=== PATIENT | female | born 1965 | race Caucasian/White ===

== ENCOUNTER 2018-05-27 11:11 | Inpatient (IN) | payer OTHER ==
[~2018-05-27] VITALS: Ht 162.6 cm; Wt 108.4 kg
--- NOTE | ~2018-05-27 | 2DMMODE ---
[facility] [address] [place] [address] 2 D/M-MODE ECHOCARDIOGRAM Name: KHALIDA MOCK Room #: 419-P [facility] IN M.R.#: [id number] Admission: 05/27/18 Attend Phys: Sacha Palacio MD Discharge: Date of : 65 Date of Service: 05/28/18 0855 Report #: [id number] THIS REPORT FOR: //name// APPROVED REPORT Study performed: 05/28/2018 08:00:25 EXAM: Comprehensive 2D, Doppler, and color-flow Echocardiogram Patient Location: Echo lab Room #: [facility] Status: routine BSA: 2.20 HR: 106 bpm BP: 123/75 mmHg Rhythm: Tachycardia Other Information Study Quality: Adequate Indications Edema, dyspnea. 2D Dimensions RVDd: 32.48 mm IVSd: 11.85 (7-11mm) LVOT Diam: 20.40 (18-24mm) LVDd: 51.23 mm PWd: 11.50 (7-11mm) Ascending Ao: 38.80 (22-36mm) LVDs: 35.81 (25-40mm) Aortic Root: 36.20 mm Volumes Left Atrial Volume (Systole) Single Plane 4CH: 47.00 mL Single Plane 2CH: 43.38 mL LA ESV Index: 22.00 mL/m2 Aortic Valve AoV Peak Elfego.: 2.07 m/s AO Peak Gr.: 17.07 mmHg LVOT Max P.74 mmHg LVOT Max V: 1.64 m/s HERMAN Vmax: 2.59 cm2 Mitral Valve E/A Ratio: 1.1 MV Decel. Time: 147.74 ms MV E Max Elfego.: 1.49 m/s [facility] [address] [address] 2 D/M-MODE ECHOCARDIOGRAM Name: KHALIDA MOCK Room #: 419-[facility] IN [facility].#: [id number] Admission: 05/27/18 Attend Phys: Sacha Palacio MD Discharge: Date of : 65 Date of Service: 05/28/18 0855 Report #: [id number] MV A Elfego.: 1.37 m/s MV PHT: 42.84 ms IVRT: 43.83 ms Pulmonary Valve PV Peak Elfgeo.: 1.42 m/s PV Peak Gr.: 8.10 mmHg Pulmonary Vein P Vein S: 0.50 m/s P Vein D: 0.81 m/s P Vein S/D Ratio: 0.62 Tricuspid Valve TR Peak Elfego.: 2.70 m/s RAP Estimate: 10.00 mmHg TR Peak Gr.: 29.21 mmHg PA Pressure: 39.00 mmHg Left Ventricle The left ventricle is normal size. There is normal LV segmental wall motion. Borderline concentric left ventricular hypertrophy. Left ventricular systolic function is normal. LVEF is 55%. Difficult to accurately assess LV diastolic function due to tachycardia. Right Ventricle The right ventricle is normal size. The right ventricular systolic function is normal. Atria The left atrium size is normal. The right atrium size is normal. Aortic Valve The aortic valve is normal in structure, trileaflet. No aortic regurgitation. There is no aortic valvular stenosis. Mitral Valve The mitral valve is normal in structure. Mild mitral regurgitation. Tricuspid Valve The tricuspid valve is normal in structure. Mild to moderate tricuspid regurgitation. Estimated PAP is 35-40mmHg. Pulmonic Valve The pulmonary valve is normal in structure. Trace pulmonic regurgitation. [facility] [address] [place] [address] 2 D/M-MODE ECHOCARDIOGRAM Name: KHALIDA MOCK Room #: 419-P ADM IN .R.#: [id number] Admission: 05/27/18 Attend Phys: Sacha Palacio MD Discharge: Date of : 65 Date of Service: 05/28/18 0855 Report #: [id number] Great Vessels Aortic root is borderline dilated. The ascending aorta is mildly dilated at 3.9cm. IVC is dilated and collapses >50% with inspiration. Pericardium There is no pericardial effusion. <Conclusion> Left ventricular systolic function is normal. There is normal LV segmental wall motion. LVEF 55%. The aortic valve is normal in structure, trileaflet. No aortic regurgitation or stenosis. The mitral valve is normal in structure. Mild mitral regurgitation. Mild to moderate tricuspid regurgitation. Estimated pulmonary artery pressure of 35-40mmHg. The ascending aorta is mildly dilated/uppper limits of normal at 3.9cm. There is no pericardial effusion. <ELECTRONICALLY SIGNED> By: Agustin Alvarez MD, [facility] 05/28/18854 4 4 Agustin Alvarez MD, [facility] /INF
--- NOTE | ~2018-05-27 | D ---
[facility] [place] [address] DISCHARGE SUMMARY Name: KHALIDA MOCK Room #: 419-P [facility] IN M.R.#: [id number] Admission: 05/27/18 Attend Phys: Sacha Palacio MD Discharge: 06/01/18 Date of : 65 Report #: [id number] THIS REPORT FOR: //name// CC: Agustin Alvarez MD [facility] ____ ____ DATE OF SERVICE: 06/01/2018 HOSPITAL COURSE: The patient is a 52-year-old female who was admitted with shortness of breath and anasarca. She has an extensive history of asthma as well. Admission chest x-ray revealed left-sided infiltrate consistent with pneumonia and she was placed on levofloxacin intravenously and aggressive pulmonary toilet. Nocturnal oximetry revealed significant desaturations during the night despite reasonably good oxygenation when she was awake and up during the day. She was started on nocturnal oxygen at 2 liters per nasal cannula per minute and a formal polysomnogram is recommended. During her hospital stay, she was seen by Dr. Agustin Alvarez from Cardiology who diagnosed and helped manage her diastolic congestive heart failure, Dr. Raulito Mullen from Pulmonary Medicine who helped manage her pneumonia and asthma and probable obstructive sleep apnea symptoms, and she was seen by Dr. Allyn Pulido from Psychiatry who recommended careful followup of her medications being used to treat the underlying paranoid schizophrenia. One inciting factor was the large dose of verapamil the patient was taking prior to admission in order to treat high blood pressure and tachycardia. Beta blockers are not an option in this asthmatic patient. Part of the tachycardia problem is likely the pulmonary infection and treating the underlying cause may help reduce her heart rate towards a more normal level. Verapamil was reduced from 480 mg per day down to 240 mg per day and well tolerated. Diuretics were added, with initial intravenous twice a day doses of Lasix and subsequently converted to torsemide orally, along with supplemental potassium and magnesium. Also noteworthy, the patient's glomerular filtration rate hovered between 35 and 40 throughout her hospital stay, suggestive of at least stage 2 chronic kidney disease. At the time of discharge, the patient is being sent home on the following medications regimen: Levofloxacin 500 mg by mouth daily x 5 more days, magnesium oxide 400 mg by mouth daily, potassium chloride 40 plus 20 mEq by mouth daily*, torsemide 40 mg by mouth every morning, ferrous sulfate 325 mg by [address] [address] DISCHARGE SUMMARY Name: KHALIDA MOCK Room #: 419-P [facility] IN ..#: [id number] Admission: 05/27/18 Attend Phys: Sacha Palacio MD Discharge: 06/01/18 Date of : 65 Report #: [id number] mouth twice daily with meals x 6 months, Breo Ellipta 2 puffs daily for treatment of asthma, albuterol/ipratropium nebulizer treatments q.i.d. and p.r.n., aripiprazole 45 mg by mouth daily, bupropion hydrochloride XL 300 mg by mouth daily at dinnertime, levothyroxine 25 mcg by mouth daily, Seroquel 200 mg by mouth nightly, lisinopril 5 mg by mouth daily, verapamil extended release 240 mg by mouth daily, vitamin D 5000 units by mouth daily, duloxetine 60 mg by mouth daily, MiraLax 17 grams in a glass of water by mouth daily, atorvastatin 10 mg by mouth nightly, clozapine 400 mg by mouth nightly, montelukast 10 mg by mouth daily, omeprazole 40 mg by mouth daily, acetaminophen 650 mg by mouth every 4 hours as needed for pain or temperature greater than 100 degrees, calcium carbonate or Tums 2 tablets by mouth 4 times daily as needed for dyspepsia, dextran eye drops 1 or 2 drops each eye 3 times daily as needed or ocular dryness, no other medications. During this hospitalization, the patient was found to have an elevated thyroid stimulating hormone and was placed on a low-dose levothyroxine 25 mcg daily. This will need test in a couple of months. Also during this hospitalization, the patient was found to be significantly ____ and subsequently converted to oral regimen once again. Her last hemoglobin during this time went up from 8.4-9.5. The patient's weight during this hospital stay was as high as 263.8 pounds, but on 05/31/2018, with aggressive diuretic therapy, her weight had decreased to 238.9 pounds. She will need to weight herself daily. In the event of being 2-pound or more increase in her baseline, she will need additional diuretic therapy. We will follow serial chemistries and medication levels to ensure ____. Apparently, she will need a followup chest x-ray ____. DISCHARGE DIAGNOSES: 1. ____. 2. Diastolic congestive heart failure. 3. ____. 4. Paranoid schizophrenia. 5. Hypertension. 6. Suspected obstructive sleep apnea. 7. Morbid obesity. 8. Gastroesophageal reflux disease. 9. Hypothyroidism. 10. Chronic kidney disease, stage 2 ____. 11. Hyperlipidemia. 12. History of sciatica ____. [facility] [address] [place] [address] DISCHARGE SUMMARY Name: KHALIDA MOCK Room #: 419-P [facility] IN ..#: [id number] Admission: 05/27/18 Attend Phys: Sacha Palacio MD Discharge: 06/01/18 Date of : 65 Report #: [id number] We will see the patient in followup first day of the week of her discharge from the hospital at her residential care facility, ____ in [facility]. <ELECTRONICALLY SIGNED> By: Sacha Palacio MD 06/12/18 1042 [id number] Sacha Palacio MD /nt
--- NOTE | ~2018-05-27 | HC ---
[facility] [place] [address] CONSULTATION Name: KHALIDA MOCK Room #: 419-P [facility] IN .R.#: [id number] Admission: 05/27/18 Attend Phys: Sacha Palacio MD Discharge: 06/01/18 Date of : 65 Report #: [id number] THIS REPORT FOR: //name// CC: Sacha Palacio REASON FOR CONSULTATION: Edema and tachycardia. HISTORY OF PRESENT ILLNESS: The patient is a 52-year-old woman who is a resident at [facility] for paranoid schizophrenia. Her history includes asthma, hypertension and anemia. She was admitted with increasing shortness of breath and lower extremity edema. She has had about a 20 pound weight gain with lower extremity edema, abdominal bloating; no orthopnea or paroxysmal nocturnal dyspnea. She also had a nonproductive cough and worsening of her wheezing and bronchospasm. Since admission, she has noticed to have an underlying sinus tachycardia. I have been kindly asked to see her in this regard. She denies past cardiac history. She denies a history of myocardial infarction, coronary disease or prior cardiac testing. No history of near syncope or syncope. Since admission, she has been diagnosed with pneumonia and a pulmonary consultation has been requested for treatment of her bronchospasm. ALLERGIES: There are no known drug allergies. MEDICATIONS: Her medicines include albuterol nebulizer, iron, atorvastatin, verapamil 240 mg twice daily, duloxetine 60 mg daily, Abilify 30 mg daily, ____, bupropion 150 mg twice daily, Seroquel 400 mg daily, Breo Ellipta 1 puff daily, Tums, MiraLax, Depo-Provera and omeprazole. PAST MEDICAL HISTORY: Her past history and medical records have been reviewed and include a history of paranoid schizophrenia, monoclonal gammopathy, history of anemia, asthma, hypertension, chronic kidney disease, reflux disease, Tiffnaie fundoplication and prior cholecystectomy. SOCIAL HISTORY: She has been disabled due to mental health issues. Nonsmoker, nondrinker, has a supportive family. FAMILY HISTORY: Unremarkable for premature coronary disease. REVIEW OF SYSTEMS: All systems negative except as that noted above. PHYSICAL EXAMINATION: GENERAL: A pleasant woman who is alert and talking in full sentences. She has audible wheezing. VITAL SIGNS: Blood pressure is 125/70, heart rate of 90 and regular. She is afebrile, 5 feet 4 inches tall, 263 pounds. She reports her "dry weight" is 240 pounds. HEENT: There are neither xanthelasma, subcutaneous xanthomata, [place] [address] CONSULTATION Name: KHALIDA MOCK Room #: 419-P [facility] IN M.R.#: [id number] Admission: 05/27/18 Attend Phys: Sacha Palacio MD Discharge: 06/01/18 Date of : 65 Report #: [id number] digital cyanosis or kyphoscoliosis present. CHEST: Reveals diffuse mid to end expiratory wheezes. CARDIAC: Tachycardic, regular rate and rhythm with normal S1, S2. There is an increased pulmonic closure sound. ABDOMEN: Soft, obese and nontender. EXTREMITIES: Reveal 1+ edema. Radial pulses are 2+. NEUROLOGIC: She is alert with a nonfocal exam. LABORATORY DATA: Sodium 142, potassium 4.3 and creatinine 1.3. ProBNP of 303. White count 10.3, hemoglobin 8.5 and platelet count 227. Thyroid function studies: TSH 4.8. CT of the chest demonstrates a patchy left upper lobe infiltrate consistent with pneumonia. V/Q scan was low probability for pulmonary embolism. EKG: Sinus rhythm, nonspecific T-wave abnormality. IMPRESSION: 1. Diastolic heart failure, acute on chronic. 2. Asthma exacerbation. 3. Pneumonia, left lung infiltrate. 4. Anemia, severe. 5. Hypertension. 6. Chronic kidney disease. 7. Paranoid schizophrenia. RECOMMENDATIONS: 1. IV Lasix. 2. Agree with pulmonary evaluation. She may benefit from blood transfusion in this setting. Iron studies remain pending. 3. Echocardiogram demonstrates normal left ventricular systolic function, no valvular heart disease and elevated pulmonary artery pressures. I believe her diastolic heart failure is multifactorial and primarily related to the comorbidities and acute illnesses as detailed above. Her heart rate, sinus mechanism is a physiologic response to these comorbidities. I have discussed these issues with the patient, her mother and Dr. Palacio. Thank you for asking me to participate in her care. <ELECTRONICALLY SIGNED> By: Agustin Alvarez MD, FACC 06/02/18 1258 1810 0101 Agustin Alvarez MD, FACC /nt
--- NOTE | ~2018-05-27 | EKG ---
[address] [address] ELECTROCARDIOGRAM REPORT Name: KHALIDA MOCK Room #: 419-P ADM IN M.R.#: [id number] Admission: 05/27/18 Attend Phys: Sacha Palacio MD Discharge: Date of : 65 Report #: [id number] THIS REPORT FOR: //name// [facility] Test Date: 2018-05-29 Test Time: 07:12:47 Pat Name: KHALIDA MOCK Department: Room: 419 P Gender: F Director Of Science: VEE : 1965 Requested By: Agustin Alvarez Order Number: [id number] MD: Lan Gonzalez Measurements Intervals [place] Rate: 108 P: 64 [place]: 162 QRS: 97 QRSD: 92 T: 33 QT: 353 QTc: 473 Interpretive Statements Sinus tachycardia Borderline right axis deviation Borderline T wave abnormalities Compared to ECG 05/27/2018 16:30:51 Sinus rhythm no longer present T-wave abnormality still present Electronically Signed On 05-29-2018 8:22:42 CDT by Lan Gonzalez [email or web address] <ELECTRONICALLY SIGNED> By: aLn Gonzalez MD 09/821 1 1 Lan Gonzalez MD /SANDY
--- NOTE | ~2018-05-27 | H ---
[facility] [place] [address] HISTORY AND PHYSICAL Name: KHALIDA MOCK Room #: 419-P ADM IN M.R.#: [id number] Admission: 05/27/18 Attend Phys: Sacha Palacio MD Discharge: Date of : 65 Report #: [id number] THIS REPORT FOR: //name// CC: Sacha Pichardo MD [facility] DATE OF SERVICE: 05/27/2018 CHIEF COMPLAINT: Shortness of breath. HISTORY OF PRESENT ILLNESS: The patient is a 52-year-old female, resident at the [facility]. In recent weeks, she has been having increasing difficulty with her "asthma." She is having more problems with shortness of breath, usually with exertion, but mostly at night when she is trying to sleep and at rest. She does not have orthopnea or paroxysmal nocturnal dyspnea, rather just a consistent feeling of shortness of breath. Cough is minimal. Wheezing is often present, but with improved compliance with her nebulizer treatments, that too has been somewhat better recently, but she has developed increasing swelling in her legs and trunk and upon visit with her neurophysiologist, Dr. Pichardo yesterday, he recommended she be hospitalized immediately for a 20 pound weight increase over a 2-week period. The patient went to [facility] and was evaluated including labs and a chest x-ray and was told that her vital signs were good and that she did not need to be in the hospital. Upon her return to the facility, I was contacted and I suggested to the patient and her mother that they consider being hospitalized at [facility] and for that reason, she is admitted today for further evaluation and treatment. PAST MEDICAL HISTORY: Includes the following, paranoid schizophrenia, monoclonal gammopathy of uncertain significance, anemia, prior history of pneumonia, asthma, tachycardia, hypertension, osteoarthritis of the knees, obesity, fall. She has had hematochezia in the past, urinary tract infections. She walks with a right-sided lift. She has gastroesophageal reflux disease, chronic problems with constipation, had vitamin D deficiency, seasonal allergies (atopy). She has had a Tiffanie fundoplication in the past and a cholecystectomy. ALLERGIES: She has no known drug allergies. MEDICATIONS: List from [facility] is as follows: Albuterol nebulizer treatments at least 4 times a day and albuterol inhaler for rescue purposes, ferrous sulfate 325 mg by mouth daily, atorvastatin 10 mg by mouth daily, verapamil sustained release 240 mg 2 tablets by mouth daily, acetaminophen 650 mg by mouth every 4 hours as needed for fever or pain, bupropion hydrochloride sustained release 150 mg by mouth twice daily, duloxetine 60 mg by mouth daily, Abilify 30 mg by mouth daily, clozapine 100 mg tablets 4 tablets by mouth nightly at [address] [address] HISTORY AND PHYSICAL Name: KHALIDA MOCK Room #: 419-P [facility] IN M.R.#: [id number] Admission: 05/27/18 Attend Phys: Sacha Palacio MD Discharge: Date of : 65 Report #: [id number] bedtime, Seroquel XR 400 mg by mouth nightly, calcium citrate 200 mg tablets 2 tablets by mouth daily, Breo Ellipta 1 puff orally daily, Arnuity Ellipta nasal spray 1 spray in each nostril twice daily, montelukast 10 mg nightly, artificial tears p.r.n. dry eyes, menthol cough drop lozenges p.r.n., Tums p.r.n. dyspepsia, milk of magnesia p.r.n. constipation, MiraLax 17 g in a glass of water daily, omeprazole 40 mg by mouth daily, Depo-Provera 150 mg IM q. 3 months, vitamin D3 one capsule by mouth 1000 units daily. FAMILY HISTORY: Not applicable. SOCIAL HISTORY: The patient is disabled because of her mental health issues, but has been well controlled in the last 2 years. She has been living at [facility] in [place], [place] for several years and has appeared to be quite well adjusted. She participates in day programs activity for work with sizable group from that facility. She is a nonsmoker, nondrinker and has never used recreational drugs. She has a [facility] [employer] as her guardian, although her mother is very supportive. She also has a sister who visits with her frequently. REVIEW OF SYSTEMS: The patient reports generalized malaise for quite a long time and frequent issues with wheezing and shortness of breath. She denies any fever or chills, but has had significant sweats recently. She fatigues easily. She does not have chest pain. She does not awaken feeling rested. Pulmonary evaluation in the past was incomplete. She notes significant swelling in her legs and trunk. She has at least a 20 pound weight gain in the last 2 weeks. PHYSICAL EXAMINATION: VITAL SIGNS: At the hospital, temperature 36.6 degrees centigrade, pulse 106, respirations 18, blood pressure 126/74 and pulse ox is 97% on room air. GENERAL: The patient is a pleasant middle-aged female who is morbidly obese, and her face looks somewhat flushed and sweaty at baseline. HEENT: Extraocular muscles are intact. Her eyes are periorbitally swollen and her cheeks are very full. Oropharynx is moist and pink. No lesions, no exudates. Hearing is grossly normal. NECK: Large. JVD was not noted. No adenopathy or thyromegaly detected on exam. LUNGS: Fairly clear bilaterally today. The patient is unable to generate a good cough to assess wheezing, but rather grunts when asked to cough. Minimal wheezing was heard on exam today. Retractions were not noted. Tachypnea was not noted. CARDIOVASCULAR: Reveals a regular mild tachycardic rhythm without any significant murmur, gallop or rub. ABDOMEN: Soft. Bowel sounds are present. Her girth looks enlarged from before, but no fluid shifts are noted. No visceromegaly is noted. EXTREMITIES: There is 4+ pitting and nonpitting edema in both lower extremities extending at least up to the knees. Peripheral pulses are nonetheless palpable [address] [address] HISTORY AND PHYSICAL Name: KHALIDA MCOK Room #: 419-P [facility] IN M.R.#: [id number] Admission: 05/27/18 Attend Phys: Sacha Palacio MD Discharge: Date of : 65 Report #: [id number] in all 4 distal and all 4 distal extremities are warm to touch. Homans sign is negative bilaterally. There is some dry skin on the feet, but no open wounds. She does have some onychomycosis on both feet noted, and both feet are swollen as well as the ankles. MENTAL STATUS: The patient is alert. She is fully oriented. She appears slightly anxious at times, but no hallucinations or delusions on exam today. Affect is fairly full. Mini mental status exam was not performed today. NEUROLOGIC: Cranial nerves 2-12 are intact. Cranial cerebellar exam shows no Babinski sign. No Romberg sign. She has some mild sensory loss in both feet in a stocking distribution. Her motor function reveals general weakness without focal deficits. Her strength is about 4+/5 throughout. Deep tendon reflexes are equal in both lower extremities and both upper extremities and normal. LABORATORY DATA: CBC: The white blood cell count is 10,300, hemoglobin is 8.5 with hematocrit of 26.5. The red blood cell indices show the RDW is elevated at 15.1. The MCV is 89.9 and otherwise normal. Platelet count is 227,000. D-dimer was elevated at 0.94, with an upper limits of normal at 0.5. Chemistry showed a sodium of 141, potassium 4.4, chloride 110, bicarbonate of 27, BUN of 21, creatinine 1.3 with an estimated GFR of 43. The anion gap was low at 4. Glucose was 100, nonfasting and the calcium level was 9.1, total protein was 6.3 with an albumin of 3.1, slightly low. The total bilirubin was 0.3, AST 9, ALT 21, alkaline phosphatase 95, all essentially normal. Troponin I was less than 0.06, which is normal. NT-pro-B natriuretic peptide was 303 and is essentially normal. The lipid profile was unusual and revealed total cholesterol of 91 with an LDL of 26, HDL of 55 and triglycerides of 50. She did have a TSH, which was 4.875 and elevated above the upper limits of normal of 3.740. Arterial blood gas showed a pH of 7.363 with a pCO2 of 43.2 and a pO2 of 72.1. The A-a gradient was around 20 at current altitude. Lactate level was normal at 1.07 within upper limits of 2.0 and this test was done on room air. Chest x-ray suggests a left-sided infiltrate and the bilateral lower extremity venous Dopplers were negative for DVT bilaterally. EKG showed a normal sinus rhythm with some right-sided strain and blood cultures have been obtained and are pending. Urinalysis is also pending. ASSESSMENT AND PLAN: 1. Shortness of breath with evidence of respiratory acidosis and new pulmonary infiltrate on the left side -- clinically, the patient does not necessarily sound like she has pneumonia, but the inhaled steroids may obscure an acute infection, so we will start intravenous antibiotics after the cultures are obtained and pursue workup for possible pulmonary embolism as well. I will request a pulmonary consult. Interestingly, the A-a gradient is not [facility] [address] [place] [address] HISTORY AND PHYSICAL Name: KHALIDA MOCK Room #: 419-P [facility] IN M.R.#: [id number] Admission: 05/27/18 Attend Phys: Sacha Palacio MD Discharge: Date of : 65 Report #: [id number] particularly elevated, which argues against PE. Further, her renal function is bad enough to keep me from using intravenous contrast dye for a CT angiogram of the chest, so I will anticoagulate her Kramer tonight and get ventilation perfusion lung scan tomorrow. 2. Morbid obesity and significantly sedating medications for treatment of her underlying mental health issues -- the likelihood of her having obstructive sleep apnea appears very high to me, and we will get nocturnal oximetry to start the evaluation. 3. Chronic anemia and monoclonal gammopathy of uncertain significance. She does follow with Dr. Pichardo, her neurophysiologist and her current complete blood cell count is typical for ones that she has had recently and does not show any signs of an acute bleeding or other change in her hematologic status. 4. Hypertension. We will monitor and treat accordingly. 5. Paranoid schizophrenia. Continue current medications. She does have a psychiatrist with whom she follows, but we may need to consider changing her medication regimen in order to optimize her status. If she does have sleep apnea, this could impact her mental health problems very unfavorably despite medication compliance. 6. Tachycardia. I suspect this is medication related possibly due to her nebulizer treatments and possibly due to some of her other medications. 7. Chronic asthma -- I will seek the recommendations of the pulmonary automotive service consultant with regards to appropriateness of current management. <ELECTRONICALLY SIGNED> By: Sacha Palacio MD 05/28/18 [phone] [id number] Sacha Palacio MD /nt
--- NOTE | ~2018-05-27 | EKG ---
[address] [place] [address] ELECTROCARDIOGRAM REPORT Name: KHALIDA MOCK Room #: 419-P ADM IN M.R.#: [id number] Admission: 05/27/18 Attend Phys: Sacha Palacio MD Discharge: Date of : 65 Report #: [id number] THIS REPORT FOR: //name// [facility] Test Date: 2018-05-27 Test Time: 16:30:51 Pat Name: KHALIDA MOCK Department: Room: 419 P Gender: F [employer] Developer: Yon MARSH : 1965 Requested By: Sacha Palacio Order Number: [id number] MD: Agustin Alvarez Measurements Intervals [place]ye Rate: 95 P: 41 ME: 167 QRS: 98 QRSD: 90 T: 66 QT: 357 QTc: 449 Interpretive Statements Sinus rhythm Borderline right axis deviation Borderline T abnormalities, anterior leads No previous ECG available for comparison Electronically Signed On 05-28-2018 8:07:13 CDT by Agustin Alvarez [email or web address] <ELECTRONICALLY SIGNED> By: Agustin Alvarez MD, [facility] 05/28/18 0807 1630 1630 Agustin Alvarez MD, FACC /EPI
[2018-05-27] MEDS ORDERED: ALBUTEROL2.5 MG/31 INH ×2 (11:27→11:30)
[2018-05-27] MEDS ORDERED: ANTACID CHEWAB1 EACH PO (11:27)
[2018-05-27] MEDS ORDERED: COUGH DROPS2.7 MG PO (11:28)
[2018-05-27] MEDS ORDERED: TYLENOL325 MG PO (11:29)
[2018-05-27] MEDS ORDERED: NITROGLYCERIN0.4 MG SUBLING (11:29)
[2018-05-27] MEDS ORDERED: MILK OF MA2400 MG/10 PO (11:29)
[2018-05-27] MEDS ORDERED: VENTOLIN HFA 1818 GM INH (11:30)
[2018-05-27] MEDS ORDERED: ABILIFY30 MG PO (11:32)
[2018-05-27] MEDS ORDERED: ABILIFY15 MG PO (11:32)
[2018-05-27] MEDS ORDERED: ARTIFICIAL TEAR15 M1 OPHTHALMIC (11:33)
[2018-05-27] MEDS ORDERED: BREO ELLIPTA 21 EACH PO (11:33)
[2018-05-27] MEDS ORDERED: LIPITOR10 MG PO (11:33)
[2018-05-27] MEDS ORDERED: BUPROPION XL150 MG PO (11:34)
[2018-05-27] MEDS ORDERED: WELLBUTRIN SR150 MG PO (11:35)
[2018-05-27] MEDS ORDERED: CALCITRATE200 MG PO (11:37)
[2018-05-27] MEDS ORDERED: CYMBALTA60 MG PO (11:40)
[2018-05-27] MEDS ORDERED: CLOZAPINE100 M1 PO (11:40)
[2018-05-27] MEDS ORDERED: ARNUITY ELLIPT50 MCG NASAL (11:41)
[2018-05-27] MEDS ORDERED: FEOSOL325 M1 PO (11:41)
[2018-05-27] MEDS ORDERED: OMEPRAZOLE40 MG PO (11:42)
[2018-05-27] MEDS ORDERED: MIRALAX17 GM PO (11:42)
[2018-05-27] MEDS ORDERED: SINGULAIR 10 MG10 M1 PO (11:42)
[2018-05-27] MEDS ORDERED: SEROQUEL XR400 M1 PO (11:43)
[2018-05-27] MEDS ORDERED: VERAPAMIL E.R240 M1 PO (11:44)
[2018-05-27] MEDS ORDERED: VITAMIN D5000 UNIT PO (11:45)
[2018-05-27] MEDS ORDERED: DEPO-PROVER150 MG/M1 IM (11:46)
[2018-05-27 15:50] VITALS: BP 126/74
[2018-05-27 16:32] LABS: BE(vivo) -1.3 mmol/L (-2 to +3); PCO2 43.2 mmHg (35.0-45.0); PO2 72.1 mmHg (80.0-100.0); pH 7.363 (7.360-7.450)
[2018-05-27 17:02] LABS: HEMATOCRIT 26.5 % (37.0-47.0); HEMOGLOBIN 8.5 gm/dL (12.0-15.0); MCH 28.9 pg (26.0-34.0); MCHC 32.2 g/dL (28.0-37.0); MCV 89.9 fL (80.0-100.0); RBC 2.95 mil/uL (4.20-5.00); RDW 15.1 % (10.5-14.5); WBC 10.3 thou/uL (4.0-11.0)
[2018-05-27 17:13] LABS: CALCIUM 9.1 mg/dL (8.5-10.1); CREATININE 1.3 mg/dL (0.6-1.0); POTASSIUM 4.4 mmol/L (3.5-5.1)
[2018-05-27 17:19] LABS: ALBUMIN 3.1 g/dL (3.4-5.0); TOTAL BILIRUBIN 0.3 mg/dL (<0.1-1.0); TOTAL PROTEIN 6.3 g/dL (6.4-8.2)
[2018-05-27 17:24] LABS: CHOLESTEROL 91 mg/dL (<200); HDL CHOLESTEROL 55 mg/dL (>40); LDL CHOLESTEROL 26 mg/dL (<100); TC:HDL 1.7 Ratio (Not establshd); TRIGLYCERIDE 50 mg/dL (<150); TROPONIN-I <0.06 ng/mL (<0.06); VLDL 10 mg/dL (<40)
[2018-05-27 19:47] VITALS: BP 131/71
[2018-05-27 20:23] LABS: URINE BILIRUBIN NEGATIVE (Negative); URINE BLOOD NEGATIVE (Negative); URINE CLARITY CLEAR; URINE COLOR YELLOW; URINE GLUCOSE-RANDOM* NEGATIVE (Negative); URINE KETONES NEGATIVE (Negative); URINE NITRITE-REFLEX NEGATIVE (Negative); URINE PROTEIN (DIPSTICK) NEGATIVE (Negative); URINE UROBILINOGEN 0.2 E.U./dl (0.2-1.0)
[2018-05-27 20:24] LABS: URINE LEUKOCYTES-REFLEX 1+ (Negative)
[2018-05-27 20:32] LABS: BACTERIA-REFLEX 1-9 Few /HPF (None Seen); CASTS None Seen /LPF (None Seen); CRYSTALS None Seen /LPF (None Seen); SQUAMOUS >10 Many /LPF (0-3); URINE RBC 3-10 Few /HPF (0-2); URINE WBC-REFLEX >25 Many /HPF (0-5)
[2018-05-28 04:43] VITALS: BP 123/75
[2018-05-28 05:45] LABS: CALCIUM 8.6 mg/dL (8.5-10.1); CREATININE 1.3 mg/dL (0.6-1.0); POTASSIUM 4.3 mmol/L (3.5-5.1)
[2018-05-28 13:19] LABS: URINE BILIRUBIN NEGATIVE (Negative); URINE BLOOD NEGATIVE (Negative); URINE CLARITY CLEAR; URINE COLOR YELLOW; URINE GLUCOSE-RANDOM* NEGATIVE (Negative); URINE KETONES NEGATIVE (Negative); URINE NITRITE-REFLEX NEGATIVE (Negative); URINE PROTEIN (DIPSTICK) NEGATIVE (Negative); URINE SPECIFIC GRAVITY 1.025 (1.005-1.035); URINE UROBILINOGEN 0.2 E.U./dl (0.2-1.0)
[2018-05-28 13:21] LABS: URINE LEUKOCYTES-REFLEX 1+ (Negative)
[2018-05-28 13:29] LABS: BACTERIA-REFLEX 1-9 Few /HPF (None Seen); SQUAMOUS 0-3 Few /LPF (0-3); URINE RBC None Seen /HPF (0-2); URINE WBC-REFLEX 0-5 Rare /HPF (0-5)
[2018-05-28 13:30] LABS: CASTS None Seen /LPF (None Seen); CRYSTALS None Seen /LPF (None Seen)
[2018-05-28 15:53] VITALS: BP 125/70
[2018-05-28 18:19] LABS: % SATURATION 10 % (20-39); IRON 25 ug/dL (50-170); TIBC 263 ug/dL (250-450)
[2018-05-28 19:40] VITALS: BP 120/61
[2018-05-29 06:12] LABS: INR 1.1; PROTIME 10.9 Seconds (9.3-11.4)
[2018-05-29 06:13] LABS: CALCIUM 9.2 mg/dL (8.5-10.1); CREATININE 1.4 mg/dL (0.6-1.0); POTASSIUM 4.3 mmol/L (3.5-5.1)
[2018-05-29 07:26] VITALS: BP 136/75
[2018-05-29 18:22] LABS: CALCIUM 8.9 mg/dL (8.5-10.1); CREATININE 1.5 mg/dL (0.6-1.0); MAGNESIUM 1.8 mg/dL (1.8-2.4); POTASSIUM 4.3 mmol/L (3.5-5.1)
[2018-05-29 19:32] VITALS: BP 119/65
[2018-05-29 23:06] LABS: HEPATITIS C VIRUS AB <0.1 (0.0-0.9)
[2018-05-30 01:10] LABS: ESTIMATED AVERAGE GLUCOSE 94 mg/dL (()); GLYCOHEMOGLOBIN (HGB A1C) 4.9 % (4.8-5.6)
[2018-05-30 05:01] VITALS: BP 127/89
[2018-05-30 06:00] LABS: CALCIUM 9.3 mg/dL (8.5-10.1); CREATININE 1.4 mg/dL (0.6-1.0); POTASSIUM 4.3 mmol/L (3.5-5.1)
[2018-05-30 07:34] VITALS: BP 139/87
[2018-05-30 20:00] VITALS: BP 114/76
[2018-05-31 04:26] VITALS: BP 116/72
[2018-05-31 05:29] LABS: HEMATOCRIT 28.4 % (37.0-47.0); HEMOGLOBIN 9.4 gm/dL (12.0-15.0); MCH 28.9 pg (26.0-34.0); MCHC 33.2 g/dL (28.0-37.0); MCV 87.1 fL (80.0-100.0); RBC 3.26 mil/uL (4.20-5.00); RDW 14.7 % (10.5-14.5); WBC 8.7 thou/uL (4.0-11.0)
[2018-05-31 05:43] LABS: CALCIUM 9.4 mg/dL (8.5-10.1); CREATININE 1.5 mg/dL (0.6-1.0); POTASSIUM 4.2 mmol/L (3.5-5.1)
[2018-05-31 08:40] VITALS: BP 150/82
[2018-05-31 20:30] VITALS: BP 114/64
[2018-06-01 03:32] VITALS: BP 126/78
[2018-06-01] MEDS ORDERED: MIRALAX17 GM PO (03:33)
[2018-06-01] MEDS ORDERED: LEVAQUIN 500 M500 M1 PO (03:33)
[2018-06-01] MEDS ORDERED: SINGULAIR 10 MG10 M1 PO (03:33)
[2018-06-01] MEDS ORDERED: GENTEAL TEARS OPHTHALMIC (03:33)
[2018-06-01] MEDS ORDERED: VERAPAMIL 120 MG PO (03:33)
[2018-06-01] MEDS ORDERED: NITROSTAT 0.4 MG SUBLING (03:33)
[2018-06-01] MEDS ORDERED: MILK OF MA2400 MG/10 PO (03:33)
[2018-06-01] MEDS ORDERED: IPRAT-ALBUT 0.5-3 ML INH (03:33)
[2018-06-01] MEDS ORDERED: WELLBUTRIN SR150 MG PO (03:33)
[2018-06-01] MEDS ORDERED: ATORVASTATIN CALCIUM PO (03:33)
[2018-06-01] MEDS ORDERED: VITAMIN D 1000 UNIT PO (03:33)
[2018-06-01] MEDS ORDERED: TUMS PO (03:33)
[2018-06-01] MEDS ORDERED: TORSEMIDE 20 MG PO (03:33)
[2018-06-01] MEDS ORDERED: ARIPIPRAZOLE 5 MG PO (03:33)
[2018-06-01] MEDS ORDERED: POTASSIUM CHLORIDE E PO (03:33)
[2018-06-01] MEDS ORDERED: SYNTHROID 25 MCG PO (03:33)
[2018-06-01] MEDS ORDERED: DULOXETINE 30 MG PO (03:33)
[2018-06-01] MEDS ORDERED: SEROQUEL XR 20200 MG PO (03:33)
[2018-06-01] MEDS ORDERED: MAG OX PO (03:33)
[2018-06-01] MEDS ORDERED: CLOZAPINE50 MG PO (03:33)
[2018-06-01] MEDS ORDERED: IRON325 PO (03:33)
[2018-06-01] MEDS ORDERED: ZESTRIL PO (03:33)
[2018-06-01] MEDS ORDERED: Tylenol 325MG Caplet PO (03:33)
[2018-06-01] MEDS ORDERED: ENOXAPARIN40 MG/0.1 SUBQ (03:33)
[2018-06-01] MEDS ORDERED: ALBUTEROL SULFATE INH (03:33)
[2018-06-01 04:13] LABS: CALCIUM 9.8 mg/dL (8.5-10.1); CREATININE 1.5 mg/dL (0.6-1.0); POTASSIUM 4.4 mmol/L (3.5-5.1)
[2018-06-01 07:10] VITALS: BP 156/94
[2018-06-01 13:22] VITALS: BP 156/94
[2018-06-01 16:37] VITALS: BP 156/94
== END 2018-06-01 17:59 | DRG 291 ==
LOC: EDBD 11:11 → 4E 11:11 → ENTRNSPT 06-01 16:27 → 4E 06-01 17:59
PROVIDERS: Internal Medicine; Nurse Practitioner Gerontology
DX: I13.0 Hypertensive heart and chronic kidney disease with heart failure and stage 1 through stage 4 chronic kidney disease, or unspecified chronic kidney disease (principal); I50.33 Acute on chronic diastolic (congestive) heart failure; J18.9 Pneumonia, unspecified organism; E87.2 Acidosis; J45.901 Unspecified asthma with (acute) exacerbation; F20.0 Paranoid schizophrenia; Z68.41 Body mass index [BMI] 40.0-44.9, adult; K21.9 Gastro-esophageal reflux disease without esophagitis; M17.0 Bilateral primary osteoarthritis of knee; K59.00 Constipation, unspecified; E66.01 Morbid (severe) obesity due to excess calories; D47.2 Monoclonal gammopathy; R00.0 Tachycardia, unspecified; D50.9 Iron deficiency anemia, unspecified; E03.9 Hypothyroidism, unspecified; N18.2 Chronic kidney disease, stage 2 (mild); R09.02 Hypoxemia; Z90.49 Acquired absence of other specified parts of digestive tract; Z79.899 Other long term (current) drug therapy; Z82.49 Family history of ischemic heart disease and other diseases of the circulatory system; Z28.21 Immunization not carried out because of patient refusal
CPT/HCPCS: 10783